=== PATIENT | male | born 1935 | race Caucasian/White ===

== ENCOUNTER 2021-06-01 08:34 | Outpatient (REF) | payer MEDICARE, SELFPAY ==
--- NOTE | ~2021-06-01 | XR_ITS ---
EXAMINATION: XR KNEE STANDING, BILATERAL XR KNEE, LEFT CLINICAL INFORMATION: Left knee pain. COMPARISON: None TECHNIQUE: AP bilateral knees standing. Left knee 2 views. FINDINGS: AP BILATERAL KNEE: There is mild reduction in medial and lateral compartment joint spaces of both knees. No bony erosive changes. No fracture or dislocation. LEFT KNEE: The patellofemoral compartment joint space is reduced with mild suprapatellar joint effusion. No bony erosive changes. The soft tissues are normal. 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 No loose bodies or bony erosive changes. Mild degenerative changes medial and lateral compartment right knee.
--- NOTE | ~2021-06-01 | XR_ITS ---
EXAMINATION: XR KNEE STANDING, BILATERAL XR KNEE, LEFT CLINICAL INFORMATION: Left knee pain. COMPARISON: None TECHNIQUE: AP bilateral knees standing. Left knee 2 views. FINDINGS: AP BILATERAL KNEE: There is mild reduction in medial and lateral compartment joint spaces of both knees. No bony erosive changes. No fracture or dislocation. LEFT KNEE: The patellofemoral compartment joint space is reduced with mild suprapatellar joint effusion. No bony erosive changes. The soft tissues are normal. 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 No loose bodies or bony erosive changes. Mild degenerative changes medial and lateral compartment right knee.
== END 2021-06-01 08:35 | disposition home or self-care (01) ==
LOC: HO.HOSX 08:34
PROVIDERS: Visit Provider Orthopaedic Surgery
DX: M17.12 Unilateral primary osteoarthritis, left knee (principal); M25.561 Pain in right knee
CPT/HCPCS: 20610; 73560; 73565; 99202; J1040

== ENCOUNTER 2022-03-24 08:44 | Outpatient (REF) | payer MEDICARE, SELFPAY ==
[2022-03-24 11:26] LABS: MANUAL DIFF FLAG NO
[2022-03-24 11:36] LABS: Appearance Urine CLEAR; Color Urine YELLOW; Glucose Urine UA NEG (NEG); Leukocyte Esterase Urine NEG (NEG); Nitrite Urine NEG (NEG); PH 5.5 (5.0-8.0); Specific Gravity - Urine >= 1.030 (1.005-1.025); UACC Culture Trigger NO; Urine Blood TRACE (NEG); Urine Ketones NEG (NEG); Urine Protein NEG (NEG-TRACE)
[2022-03-24 11:40] LABS: Basophils Absolute Auto 0.1 X10*3/uL (0.0-0.2); Basophils Percent Auto 0.8 % (0-2); Eosinophils Absolute Auto 0.3 X10*3/uL (0.0-0.4); Eosinophils Percent Auto 3.8 % (0-4); Hematocrit 44.5 % (42.0-52.0); Hemoglobin 14.7 g/dl (14.0-18.0); Imm Gran Abs Auto 0.03 X10*3/uL (0.00-0.03); Imm Gran Pct Auto 0.4 % (0.0-0.4); Lymphocytes Absolute Auto 1.4 X10*3/uL (1.2-4.9); Lymphocytes Percent Auto 18.5 % (20-40); Mean Corpuscular Hemoglobin 31.1 pg (27.0-33.0); Mean Corpuscular Volume 94.3 fL (80.0-98.0); Mean Platelet Volume 11.1 fL (9.4-12.4); Monocytes Absolute Auto 0.7 X10*3/uL (0.1-1.2); Monocytes Percent Auto 9.6 % (2-11); Neutrophils Absolute Auto 5.2 x10*3/uL (2.0-8.3); Neutrophils Percent Auto 66.9 % (45-73); Platelet Count 261 X10*3/uL (160-400); Red Blood Count 4.72 X10*6/uL (4.60-5.80); Red Cell Distribution Width 13.4 % (11.0-16.0); White Blood Count 7.7 X10*3/uL (4.8-10.8)
[2022-03-24 12:02] LABS: Mucus Urine 1+ /LPF; Squamous Epithelial Cell Urine TRACE /LPF; WBC Urine 0 /HPF (0-4)
[2022-03-24 12:09] LABS: TSH reflex Free T4 3.29 uIU/mL (0.32-4.0)
[2022-03-24 12:10] LABS: Alanine Aminotransferase 39 U/L (0-40); Albumin Level 4.1 g/dL (3.5-5.0); Alkaline Phosphatase 126 U/L (39-117); Anion Gap 13 (12-20); Aspartate Amino Transferase 30 U/L (5-37); Bilirubin Total 0.9 mg/dL (0.0-1.0); Blood Urea Nitrogen 20 mg/dL (9-16); Calcium 10.1 mg/dL (8.4-10.2); Carbon Dioxide 28 mmol/L (22-29); Chloride 103 mmol/L (96-108); Cholesterol 150 mg/dL; Estimated Glomerular Filt Rate > 60; Glucose Fasting 102 mg/dL (60-99); HDL Cholesterol 53 mg/dL; LDL Cholesterol Calculated 80 mg/dl; Potassium 4.5 mmol/L (3.3-5.1); Sodium 139 mmol/L (135-145); Triglycerides 85 mg/dL
== END 2022-03-24 08:45 | disposition home or self-care (01) ==
LOC: HO.HMGCLDS 08:44
PROVIDERS: PCP Nurse Practitioner Family; Visit Provider Nurse Practitioner Family
DX: I50.9 Heart failure, unspecified (principal); I10 Essential (primary) hypertension; E78.00 Pure hypercholesterolemia, unspecified
CPT/HCPCS: 36415; 80053; 80061; 81001; 84443; 85025

== ENCOUNTER 2022-07-27 09:17 | Outpatient (REF) | payer MEDICARE, SELFPAY ==
[2022-07-27 11:10] LABS: MANUAL DIFF FLAG NO
[2022-07-27 11:15] LABS: Basophils Percent Auto 0.6 % (0-2); Eosinophils Absolute Auto 0.3 X10*3/uL (0.0-0.4); Eosinophils Percent Auto 4.3 % (0-4); Hematocrit 44.2 % (42.0-52.0); Hemoglobin 14.6 g/dl (14.0-18.0); Imm Gran Abs Auto 0.02 X10*3/uL (0.00-0.03); Imm Gran Pct Auto 0.3 % (0.0-0.4); Lymphocytes Absolute Auto 1.6 X10*3/uL (1.2-4.9); Mean Corpuscular Hemoglobin 30.5 pg (27.0-33.0); Mean Corpuscular Volume 92.3 fL (80.0-98.0); Mean Platelet Volume 10.4 fL (9.4-12.4); Monocytes Absolute Auto 0.7 X10*3/uL (0.1-1.2); Monocytes Percent Auto 9.9 % (2-11); Neutrophils Absolute Auto 4.1 x10*3/uL (2.0-8.3); Neutrophils Percent Auto 60.9 % (45-73); Platelet Count 245 X10*3/uL (160-400); Red Blood Count 4.79 X10*6/uL (4.60-5.80); Red Cell Distribution Width 13.6 % (11.0-16.0); White Blood Count 6.8 X10*3/uL (4.8-10.8)
[2022-07-27 11:24] LABS: Appearance Urine Clear; Color Urine Yellow; Glucose Urine UA Negative (Negative); Leukocyte Esterase Urine Negative (Negative); Nitrite Urine Negative (Negative); PH 5.5 (5.0-9.0); Urine Blood Negative (Negative); Urine Ketones Negative (Negative); Urine Protein Negative (Neg-Trace)
[2022-07-27 11:52] LABS: Ferritin 166 ng/mL (20-250); TSH reflex Free T4 3.43 uIU/mL (0.32-4.0)
[2022-07-27 11:55] LABS: Alanine Aminotransferase 34 U/L (0-40); Albumin Level 4.3 g/dL (3.5-5.0); Alkaline Phosphatase 103 U/L (39-117); Anion Gap 15 (12-20); Aspartate Amino Transferase 31 U/L (5-37); Bilirubin Total 0.7 mg/dL (0.0-1.0); Blood Urea Nitrogen 22 mg/dL (9-16); Calcium 9.6 mg/dL (8.4-10.2); Carbon Dioxide 28 mmol/L (22-29); Chloride 102 mmol/L (96-108); Cholesterol 158 mg/dL; Estimated Glomerular Filt Rate > 60; Glucose Fasting 90 mg/dL (60-99); HDL Cholesterol 57 mg/dL; Iron 108 mcg/dL (45-160); LDL Cholesterol Calculated 85 mg/dl; Percent Iron Saturation 35 % (15-50); Potassium 4.1 mmol/L (3.3-5.1); Sodium 141 mmol/L (135-145); Total Iron Binding Capacity 312 mcg/dL (228-428); Triglycerides 83 mg/dL; Unsaturated Iron Binding 204 ug/dL
[2022-07-27 12:20] LABS: Folate > 20.0 ng/mL (> or = 4.0); Vitamin B12 584 pg/mL (200-900)
== END 2022-07-27 09:18 | disposition home or self-care (01) ==
LOC: HO.HMGCLDS 09:17
PROVIDERS: PCP Nurse Practitioner Family; Visit Provider Nurse Practitioner Family
DX: I10 Essential (primary) hypertension (principal); R53.83 Other fatigue
CPT/HCPCS: 36415; 80053; 80061; 81003; 82607; 82728; 82746; 83540; 84443; 85025

== ENCOUNTER 2022-08-08 09:09 | Outpatient (REF) | payer MEDICARE, SELFPAY ==
--- NOTE | ~2022-08-08 | XR_ITS ---
EXAMINATION: XR CHEST CLINICAL INFORMATION: Abnormal weight loss. COMPARISON: None TECHNIQUE: 2 views of the chest were obtained. FINDINGS: A paucity of lung markings is seen in the upper lobes. Mild coarsened interstitial markings are seen inferiorly with linear markings in the right middle lobe and lingula. There are no pleural effusions. The heart and mediastinal structures are unremarkable. XR/XR chest 2V IMPRESSION: Chronic pulmonary changes suggesting COPD. No acute cardiopulmonary process.
[2022-08-08 11:16] LABS: MANUAL DIFF FLAG NO
[2022-08-08 11:40] LABS: Basophils Absolute Auto 0.1 X10*3/uL (0.0-0.2); Basophils Percent Auto 0.9 % (0-2); Eosinophils Absolute Auto 0.2 X10*3/uL (0.0-0.4); Hematocrit 42.8 % (42.0-52.0); Hemoglobin 14.1 g/dl (14.0-18.0); Imm Gran Abs Auto 0.02 X10*3/uL (0.00-0.03); Imm Gran Pct Auto 0.3 % (0.0-0.4); Lymphocytes Absolute Auto 1.2 X10*3/uL (1.2-4.9); Lymphocytes Percent Auto 16.6 % (20-40); Mean Corpuscular HGB Conc 32.9 g/dl (31.0-36.0); Mean Corpuscular Hemoglobin 30.6 pg (27.0-33.0); Mean Corpuscular Volume 92.8 fL (80.0-98.0); Mean Platelet Volume 10.5 fL (9.4-12.4); Monocytes Absolute Auto 0.7 X10*3/uL (0.1-1.2); Monocytes Percent Auto 10.6 % (2-11); Neutrophils Absolute Auto 4.8 x10*3/uL (2.0-8.3); Neutrophils Percent Auto 68.6 % (45-73); Platelet Count 261 X10*3/uL (160-400); Red Blood Count 4.61 X10*6/uL (4.60-5.80); Red Cell Distribution Width 13.4 % (11.0-16.0)
[2022-08-08 12:03] LABS: Estimated Average Glucose 123 mg/dL; Hemoglobin A1C 149.6778 umol/L; Hemoglobin A1c % 5.9 %
[2022-08-08 12:04] LABS: Alanine Aminotransferase 26 U/L (0-40); Albumin Level 4.1 g/dL (3.5-5.0); Alkaline Phosphatase 107 U/L (39-117); Anion Gap 16 (12-20); Aspartate Amino Transferase 24 U/L (5-37); Blood Urea Nitrogen 20 mg/dL (9-16); C Reactive Protein 0.03 mg/dL (< or = 0.50); Calcium 9.4 mg/dL (8.4-10.2); Carbon Dioxide 26 mmol/L (22-29); Chloride 103 mmol/L (96-108); Estimated Glomerular Filt Rate > 60; Glucose Random 75 mg/dL (60-115); Potassium 4.4 mmol/L (3.3-5.1); Sodium 141 mmol/L (135-145); Total Protein 6.6 g/dL (6.5-8.0)
[2022-08-08 12:18] LABS: HBS Num1 0.96 mIU/mL (0-7.99); HBc Num1 0.08 S/CO (0.00-0.79); HIV AB/AG Nonreactive (Nonreactive); HIV Num 1 0.07 S/CO (0.00-0.99); Hepatitis B Core Antibody Nonreactive (Nonreactive); Hepatitis B Surface Antigen Negative (Negative); ~HepC Num1 0.15 S/CO (0.00-0.79); ~Hepatitis B Surface Antibody NONREACTIVE (Nonreactive); ~Hepatitis C Antibody Nonreactive (Nonreactive)
[2022-08-08 12:20] LABS: Prostate Specific Antigen Scr < 0.05 ng/mL (<0.05-4.0); TSH reflex Free T4 3.64 uIU/mL (0.32-4.0)
[2022-08-08 12:21] LABS: Erythrocyte Sedimentation Rate 2 MM/HR (0-15)
[2022-08-08 12:27] LABS: Appearance Urine Clear; Color Urine Dark Yellow; Glucose Urine UA Negative (Negative); Leukocyte Esterase Urine Negative (Negative); Nitrite Urine Negative (Negative); Specific Gravity - Urine 1.025 (1.005-1.025); Urine Blood Negative (Negative); Urine Ketones Negative (Negative); Urine Protein Negative (Neg-Trace)
[2022-08-09 04:34] LABS: Hepatitis A Antibody IgM 0.15 Index (0-0.79); ~Hepatitis A Antibody IgM Nonreactive (Nonreactive)
== END 2022-08-08 09:10 | disposition home or self-care (01) ==
LOC: HO.HMGCX 09:09
PROVIDERS: PCP Nurse Practitioner Family; Visit Provider Nurse Practitioner Family
DX: Z12.5 Encounter for screening for malignant neoplasm of prostate (principal); Z11.4 Encounter for screening for human immunodeficiency virus [HIV]; R63.4 Abnormal weight loss
CPT/HCPCS: 36415; 71046; 80053; 81003; 83036; 84153; 84443; 85025; 85652; 86140; 86704; 86706; 86709; 86803; 87340; 87389

== ENCOUNTER 2022-08-13 | Outpatient (REF) | payer MEDICARE, SELFPAY ==
[2022-08-14 14:33] LABS: FIT Int Ctl YES; FIT1 NEGATIVE (NEGATIVE); FIT2 NEGATIVE (NEGATIVE)
== END 2022-08-13 00:01 | disposition home or self-care (01) ==
LOC: HO.LNP
PROVIDERS: Visit Provider Nurse Practitioner Family
DX: R63.4 Abnormal weight loss (principal)
CPT/HCPCS: 82274

== ENCOUNTER 2022-08-14 10:46 | Outpatient (REF) | payer MEDICARE, SELFPAY | END 2022-08-14 10:47 | disposition home or self-care (01) | LOC: HO.HMGCLDS 10:46 | PROVIDERS: PCP Nurse Practitioner Family; Visit Provider Nurse Practitioner Family | DX: Z13.89 Encounter for screening for other disorder (principal) ==

== ENCOUNTER → 2023-03-13 10:00 | Outpatient (BNVA) | payer MEDICARE, SELFPAY | PROVIDERS: PCP Internal Medicine; Visit Provider Nurse Practitioner Family | DX: R32 Unspecified urinary incontinence (principal); R39.15 Urgency of urination; R35.0 Frequency of micturition; R15.9 Full incontinence of feces; R31.29 Other microscopic hematuria; Z85.46 Personal history of malignant neoplasm of prostate; Z79.82 Long term (current) use of aspirin; Z79.899 Other long term (current) drug therapy | CPT/HCPCS: 99202 ==

== ENCOUNTER 2023-03-16 13:58 | Outpatient (REF) | payer MEDICARE, SELFPAY ==
--- NOTE | ~2023-03-16 | US_ITS ---
EXAMINATION: US RETROPERITONEAL COMPLETE (RENAL) CLINICAL INFORMATION: Unspecified urinary incontinence. COMPARISON: None available. TECHNIQUE: Real-time imaging of the kidneys and bladder. FINDINGS: RIGHT KIDNEY: 10.5 x 4.5 x 5.5 cm (SAG x AP x TRV). The kidney is normal in size, contour, and echogenicity. Renal cortical thickness is normal. No calculi or focal parenchymal lesions. No hydronephrosis. LEFT KIDNEY: 11.1 x 3.9 x 4.9 cm (SAG x AP x TRV). The kidney is normal in size, contour, and echogenicity. Renal cortical thickness is normal. No calculi or focal parenchymal lesions. No hydronephrosis. BLADDER: Well distended and normal. Bilateral ureteral jets are demonstrated. Prevoid bladder volume is 150 mL. Postvoid bladder volume is 27 mL. ADDITIONAL FINDINGS: The prostate volume measures 11.8 cm. The prostate is suboptimally visualized. US/US retroperitoneal comp IMPRESSION: Normal renal ultrasound.
== END 2023-03-16 13:59 | disposition home or self-care (01) ==
LOC: HO.HMGCX 13:58
PROVIDERS: PCP Ophthalmology; Visit Provider Nurse Practitioner Family
DX: R15.9 Full incontinence of feces (principal); R32 Unspecified urinary incontinence; R35.0 Frequency of micturition; R39.15 Urgency of urination
CPT/HCPCS: 76770

== ENCOUNTER → 2023-03-29 14:12 | Outpatient (BNVA) | payer MEDICARE, SELFPAY | PROVIDERS: PCP Ophthalmology; Visit Provider Nurse Practitioner Family | DX: R35.0 Frequency of micturition (principal); R39.15 Urgency of urination; R32 Unspecified urinary incontinence | CPT/HCPCS: Q3014 ==

== ENCOUNTER 2023-05-01 13:11 | Outpatient (AMB) | payer MEDICARE, SELFPAY ==
--- NOTE | 2023-05-01 13:14 | A.OFFVIS_ITS ---
Intake Intake Visit Reasons: 6w/US/cysto Intake Note: Patient is present for Cystoscopy Urology Med: Tamsulosin Antibiotic Allergy: None Blood Thinner: Aspirin Allergies No Known Allergies Allergy (Verified 05/01/23 13:17) HPI HPI Comments History of Present Illness Details Tisha is a very pleasant male. He is a patient of Dr. Bedoya. He is seen for the following urologic conditions - prostate cancer - urinary urgency with poor emptying Imaging with small bladder volume and residual Discussed impacted potential damage from radiation May trial combination therapy with Myrbetriq for bladder control and bethanechol to improve emptying Prostate cancer - initial management brachytherapy - 2006 PSA stable 08/12 <0.05 Lower urinary tract symptoms Urinary urgency, frequency with episodes of on sensed incontinence and weakness of stream Associated rectal incontinence Appeared to have a code at time of brachytherapy placement Prior trial InterStim with minimal benefit PFSH Medical History CHF (congestive heart failure) High cholesterol HTN (hypertension) Left bundle branch block (LBBB) 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 Surgical History H/O heart artery stent Social History Housing: House Alcohol intake: never Patient Tobacco Use Status: Never used Tobacco e-Cigarette/Vaping Use: Never Used Second Hand Smoke Exposure: No Current occupational status: retired Cognitive needs: No Hearing needs: Yes Vision needs: Yes Review of Systems Const Denies chills and Denies fever(s) Card Reports no additional complaints and Denies syncope Resp Denies cough GI Denies abdominal pain and Denies heartburn Reports as per HPI and Denies change in libido Neuro Denies syncope Psych Denies change in libido Endo Denies change in libido Physical Exam Const General: cooperative, healthy appearing, comfortable and no acute distress Orientation/consciousness: patient oriented x3 HEENT Face and sinus: Yes normal facial exam Mouth: moist mucous membranes Neck Neck: Yes normal visual inspection, Yes full ROM and Yes trachea midline Chest Chest palpation & inspection: normal inspection of the chest Resp Effort & Inspection: normal respiratory effort, able to speak in complete sentences and no respiratory distress GI Inspection: Yes normal to inspection Back/Spine/Pelvis Cervical Spine: normal cervical lordosis Thoracic/Lumbar Spine: thoracic and lumbar spine normal to inspection Skin General skin exam: no rashes or lesions noted Neuro General: patient oriented x3, gait normal, tone normal and moves all extremities Extrem General: Yes normal to inspection and Yes capillary refill normal Assessment & Plan Assessment & Plan (1) Urinary frequency: Code(s): R35.0 - Frequency of micturition (2) Urinary urgency: Code(s): R39.15 - Urgency of urination (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 No major barriers to patient understanding were identified. An opportunity to ask questions regarding the treatment plan was provided. All questions were answered. The patient expressed understanding and agreement with the above treatment plan. The patient is aware they should contact our office by phone for worsening of their current condition or the appearance of new urologic symptoms. Compliance is encouraged with any medications and followup testing that is ordered. It is a privilege to participate in the urologic care of your patient. If you have any questions or concerns regarding treatment for the above conditions, or other urologic issues, please do not hesitate to contact me. The office telephone contact is [phone]. This note is constructed using voice recognition software. While every effort has been made to ensure accuracy wire frame lamp shade maker errors may have been included. Yours sincerely, Dr Stephen French MD, [facility] - Urology Providers of Expert, Compassionate Care for the Genitourinary System Coding Level of Care Code Est Pt Level 3 (60976) Diagnoses Urinary frequency R35.0 Urinary urgency R39.15 Radiation cystitis N30.40
== END 2023-05-01 13:21 | disposition home or self-care (01) ==
PROVIDERS: Visit Provider Urology
DX: R35.0 Frequency of micturition (principal); R39.15 Urgency of urination; N30.40 Irradiation cystitis without hematuria
CPT/HCPCS: 99213

== ENCOUNTER → 2023-05-01 13:11 | Outpatient (BNVA) | payer MEDICARE, SELFPAY | PROVIDERS: Visit Provider Urology | DX: N30.40 Irradiation cystitis without hematuria (principal); R35.0 Frequency of micturition; R39.15 Urgency of urination | CPT/HCPCS: 99212 ==

== ENCOUNTER 2023-05-25 11:20 | Outpatient (AMB) | payer MEDICARE, SELFPAY ==
--- NOTE | 2023-05-25 11:22 | A.OFFVIS_ITS ---
Intake Vital Signs 05/25/23 11:24 Height 5 ft 6 in Weight 141 lb 15.643 oz BMI 22.9 BP 145/68 H Blood Pressure Location Lt brachial Position Sitting Pulse 73 Intake Visit Reasons: Full incontinence of feces Intake Note: Patient presents to in office visit today as a new patient for incontinence of feces. CC: Patient reports he has lost 16 pounds in 2 months. Pt c/o fecal incontinence and frequency, having trouble passing stools, stools are soft. Patient states he was scheduled to start physical therapy on 06/05/23. He also reports a lot of gas in the morning. Denies other GI symptoms today. Agile Scrum Master Required: No Accompanied by: Self / Same As Patient Allergies No Known Allergies Allergy (Verified 05/25/23 11:29) HPI Full incontinence of feces HPI Details 88-year-old male here for initial evaluation of fecal incontinence. He is referred by Brenton Weber of [facility] primary care. PMX CHF/left bundle branch block Hypertension High cholesterol History of radiation cystitis Prostate cancer radiation seeds Urinary incontinence Weight loss Fatigue * SURGICAL HISTORY Coronary artery stent x 2 C spine surgery with hardware LE neuropathy [place] bilateral BRAN's * ALLERGIES: Rifamptin - flu like sx * [employer] LABS: none since 07/[address] MALDONADO UROLOGY 03/13/2023 He discusses his longstanding history of prostate cancer and having radioactive seeds placed approximately 16 years ago.? He also discusses having a longstanding history of urinary and fecal incontinence since these radioactive seeds were placed.? He reports following up with a provider in [place] for InterStim years ago for urinary and fecal incontinence however found this to make his symptoms worse at which time InterStim was removed and patient reports symptoms continue to worsen.? TODAY'S VISIT HE was sent to see Dr. Patel in [place], and he saw an WINDOWS LAPTOP TECHNICIAN, and he was sent for PT for his rectal muscle. It appears that he was referred to us through his urologist Dr. Hernandez. NOTE FROM DR. MALDONADO UROLOGY 03/13/2023 He discusses his longstanding history of prostate cancer and having radioactive seeds placed approximately 16 years ago.? He also discusses having a longstanding history of urinary and fecal incontinence since these radioactive seeds were placed.? He reports following up with a provider in [place] for InterStim years ago for urinary and fecal incontinence however found this to make his symptoms worse at which time InterStim was removed and patient reports symptoms continue to worsen.? He moves his bowels several times a day, and he has a great deal of trouble controlling it. He has incomplete evacuation with soft stool. His stooling has gradually changed over the past few months, he has also lost 16 lbs. His appetite he says has been good, and this been no change in his level of exercise. He is at a loss to explain the weight loss any says he has had quite a lot of blood work through his primary care both here and in [place] with no significant findings. His last colonoscopy was in [place] but he has had some at [facility] in the past. He says his last was horrible r/t the prep and liquid stools. His stool color change from light brown to black - but sometimes he will take pepto bismol. He has a lot of gas in the am, but not so much through the rest of day. He just had bloodwork with Dr. Bedoya. Had CT 03/26 at [facility] abd and pelvis, we will try to get this to see if there are any findings to help with his diagnosis and treatment. HE has not done stool samples except FIT testing here. He has daily fatigue and weakness - will be seeing cardiology for a repeat echo; apparently his CHF was only recently diagnosed. HE will be having PT 06/05 for ? rectal muscle dysfunction The overall differential diagnosis is wide and could include rectal sphincter dysfunction however his bowels are quite hyperactive on examination and it may be that if we slow down the stooling and make it more formed that he will have better control. I do not want to start any new medications or interventions until I gathered all of the evidence. The patient is getting somewhat fatigued does testing and blood work without answers but he is agreeable to doing stool studies today. With this in mind will get a fecal calprotectin, a pancreatic a last taste and do some basic allergy testing via a RAST and a celiac panel. ROV 2 weeks. 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 Prostate cancer Surgical History H/O cervical spine surgery H/O colonoscopy H/O heart artery stent Social History Housing: House Alcohol intake: never Patient Tobacco Use Status: Never used Tobacco e-Cigarette/Vaping Use: Never Used Second Hand Smoke Exposure: No Current occupational status: retired Cognitive needs: No Hearing needs: Yes Vision needs: Yes Review of Systems Const Reports fatigue, Denies fever(s), Denies night sweats, Denies poor appetite, Reports weakness and Reports weight loss Eyes Details: glasses/bilateral hearing aids Reports requires corrective lenses ENT Denies Normal hearing present, Denies dental pain, Denies dysphagia, Reports hearing loss, Denies mouth pain, Denies odynophagia, Denies throat swelling, Denies tongue swelling and Reports other (Dentition adequate) Card Reports no additional complaints Resp Reports no additional complaints GI Denies abdominal pain, Denies melena, Denies bloating, Denies hematochezia, Denies constipation, Denies GI cramping, Denies dysphagia, Denies excessive flatus, Denies early satiety, Denies heartburn, Reports fecal incontinence, Denies diarrhea, Denies nausea, Denies odynophagia, Denies vomiting and Denies hematemesis Reports urinary incontinence Skin/Breast Denies pruritus, Denies lesions, Denies rash and Denies jaundice Neuro Denies Normal hearing present, Denies Abnormal speech present and Reports weakness Endo Reports fatigue Aller/Immun Denies throat swelling and Denies tongue swelling Physical Exam Vital Signs: Last Vital Signs Pulse 73 05/25/23 11:24 BP 145/68 H 05/25/23 11:24 BMI result Body Mass Index 22.9 Const General: cooperative, no acute distress, well developed and well groomed Nutritional Appearance: average body habitus and well nourished Orientation/consciousness: oriented to person, oriented to place and oriented to time Limitations: No language barrier HEENT Head: Yes normocephalic and Yes atraumatic Ears: hearing grossly impaired (but well corrected with bilateral BRAN's) Eyes General: appearance normal, both eyes and all related structures Pupils: Equal, round and reactive pupils present Neck Neck: Yes normal visual inspection and Yes no lymphadenopathy Thyroid: Thyroid normal Resp Effort & Inspection: normal respiratory effort and able to speak in complete sentences Auscultation: clear to auscultation bilaterally Cardio Rate: regular rate Rhythm: regular rhythm Heart sounds: Normal, physiologic split S2 sound present Peripheral pulses: radial pulses present and posterior tibial pulses present GI Inspection: No distended and No Abdominal panniculus present Palpation (GI): Soft to palpation, nontender, no guarding, not rigid and No hepatosplenomegaly present Percussion: Yes normal to percussion Auscultation: Hyperactive bowel sounds present Rectal Exam - Male: Yes deferred Skin General skin exam: no rashes or lesions noted, turgor normal, skin not dry, no jaundice, No spider nevi and no striae Rashes: no rashes Nails: normal Neuro General: oriented to person, oriented to place and oriented to time Cranial nerves: Yes Equal, round and reactive pupils present and No Normal hearing present Speech: No Abnormal speech present Extrem General: Yes normal to inspection, No clubbing, No cyanosis and No edema Psych Appearance: grossly normal and well kempt Mental Status: mental status grossly normal Speech and movement: Normal speech and movement present Affect: normal affect Attitude: cooperative Thought process: Normal thought process present and not confabulating Thought content: Normal thought content present Insight: Limited insight present (Psych) Judgement: Limited judgement present (Psych) Assessment & Plan Assessment & Plan (1) Fecal incontinence: Code(s): R15.9 - Full incontinence of feces Plan: HE was sent to see Dr. Patel in [place], and he saw an WINDOWS LAPTOP TECHNICIAN, and he was sent for PT for his rectal muscle. It appears that he was referred to us through his urologist Dr. Hernandez. NOTE FROM DR. MALDONADO UROLOGY 03/13/2023 He discusses his longstanding history of prostate cancer and having radioactive seeds placed approximately 16 years ago.? He also discusses having a longstanding history of urinary and fecal incontinence since these radioactive seeds were placed.? He reports following up with a provider in [place] for InterStim years ago for urinary and fecal incontinence however found this to make his symptoms worse at which time InterStim was removed and patient reports symptoms continue to worsen.? He moves his bowels several times a day, and he has a great deal of trouble controlling it. He has incomplete evacuation with soft stool. His stooling has gradually changed over the past few months, he has also lost 16 lbs. His appetite he says has been good, and this been no change in his level of exercise. He is at a loss to explain the weight loss any says he has had quite a lot of blood work through his primary care both here and in [place] with no significant findings. His last colonoscopy was in [place] but he has had some at [facility] in the past. He says his last was horrible r/t the prep and liquid stools. His stool color change from light brown to black - but sometimes he will take pepto bismol. He has a lot of gas in the am, but not so much through the rest of day. He just had bloodwork with Dr. Bedoya. Had CT 03/26 at [facility] abd and pelvis, we will try to get this to see if there are any findings to help with his diagnosis and treatment. HE has not done stool samples except FIT testing here. He has daily fatigue and weakness - will be seeing cardiology for a repeat echo; apparently his CHF was only recently diagnosed. HE will be having PT 06/05 for ? rectal muscle dysfunction The overall differential diagnosis is wide and could include rectal sphincter dysfunction however his bowels are quite hyperactive on examination and it may be that if we slow down the stooling and make it more formed that he will have better control. I do not want to start any new medications or interventions until I gathered all of the evidence. The patient is getting somewhat fatigued does testing and blood work without answers but he is agreeable to doing stool studies today. With this in mind will get a fecal calprotectin, a pancreatic a last taste and do some basic allergy testing via a RAST and a celiac panel. ROV 2 weeks. (2) Diarrhea: Code(s): R19.7 - Diarrhea, unspecified Orders: Orders Calprotectin, Fecal Today R15.9 - Full incontinence of feces, R19.7 - Diarrhea, unspecified Pancreatic Elastase-1 Today R15.9 - Full incontinence of feces, R19.7 - Diarrhea, unspecified Rast Allergen Today R15.9 - Full incontinence of feces, R19.7 - Diarrhea, unspecified Transglutaminase IgA Today R15.9 - Full incontinence of feces, R19.7 - Diarrhea, unspecified Transglutaminase Ab IgG Today R15.9 - Full incontinence of feces, R19.7 - Diarrhea, unspecified Coding Level of Care Code New Pt Level 3 (56250) Diagnoses Fecal incontinence R15.9 Diarrhea R19.7
[2023-05-25 11:24] VITALS: BP 145/68; PULSE 73; BMI 22.9
== END 2023-05-25 12:15 | disposition home or self-care (01) ==
PROVIDERS: PCP Internal Medicine; Visit Provider Nurse Practitioner
DX: R15.9 Full incontinence of feces (principal); R19.7 Diarrhea, unspecified
CPT/HCPCS: 99203; 99213

== ENCOUNTER → 2023-05-25 11:20 | Outpatient (BNVA) | payer MEDICARE, SELFPAY | PROVIDERS: PCP Internal Medicine; Visit Provider Nurse Practitioner | DX: R15.9 Full incontinence of feces (principal); R19.7 Diarrhea, unspecified | CPT/HCPCS: 99202 ==

== ENCOUNTER 2023-06-19 15:00 | Outpatient (RCR) | payer MEDICARE, SELFPAY | END 2023-07-13 08:40 | disposition home or self-care (01) | LOC: HO.PT 15:00 | PROVIDERS: PCP Internal Medicine; Visit Provider Physician Assistant | DX: R15.0 Incomplete defecation (principal) | CPT/HCPCS: 97112; 97140; 97161 ==

== ENCOUNTER 2025-06-29 12:05 | Outpatient (AMB) | payer MEDICARE, SELFPAY ==
--- OUTSIDE RECORDS SUMMARY | 2024-09-26 09:00 | XMS_ITS ---
Author Organization [facility] christine Address [address] [place] [address] Care Team Providers Care Typewriter Mechanic Name Role Phone MD JESSEE BARRIOS Primary Care Provider [phone] JESSEE BARRIOS Unavailable Unavailable REASON FOR VISIT ERROR Encounters Encounter Location Date Provider Diagnosis [facility] [address] [place] [address] 09/26/2024 JESSEE BARRIOS Plan Of Treatment No Information Progress Notes * MISBAHGELA QuezadaGISSELLE ADOB:1935 (89 yo M)Acc No.[id number]:09/26/2024 Patient: ANUJ ALVARADO Provider: Mario Jordan :1935 A ge:89 Y S ex:Male Date:09/26/2024 Address:[address] [place], [place] [id number] Subjective: * Chief Complaints: * 1 . ERROR. * Medical History: Objective: * Vitals: Assessment: Plan: * Treatment: * Images: * Electronic signature of MD Mario BARRIOS on 06/29/2025 at 02:32 PM EDT Sign off status: Pending * Provider: Mario Jordan Date: 11/27/2023 Generated for Zev cifuentes/Eduardo/eTransmitting on: 0 06/29/2025 02:32 PM EDT
--- OUTSIDE RECORDS SUMMARY | 2024-11-05 09:45 | XMS_ITS ---
Author Organization [facility] Address [address] [place] [id number] Care Team Providers Care Karate Instructor Name Role Phone Lopez Morales Primary Care Provider Mitul PHOENIX, Jono Unavailable Encounters Encounter Location Date Provider Diagnosis [facility] [address] [place], [place] [id number] 11/05/2024 Jono Bauman Plan Of Treatment No Information Progress Notes * Wood CRAWLEYOlimpiaOB:1935 ( 89 yo M)Acc No.[id number]:11/05/2024 Progress Notes Patient: Tisha ALVARADO Provider: Shon Bauman MD :1935 A ge:89 Y S ex:Male Date:11/05/2024 Address:[address] [place], [place] [id number] Pcp:Lopez Jordan Subjective: * Chief Complaints: * * Medical History: Objective: * Vitals: Assessment: Plan: * Treatment: * * Electronic signature of Jono Bauman MD, MD on 06/29/2025 at 02:33 PM EDT Sign off status: Pending * Provider: Shon Bauman MD Date: 0 11/05/2024 Generated for Zev cifuentes/Eduardo/Aislinnitting on: 0 06/29/2025 02:33 PM EDT
--- OUTSIDE RECORDS SUMMARY | 2024-12-03 11:00 | XMS_ITS ---
Author Organization [facility] christine Address [address] [place] [id number] Care Team Providers Care Sales Associate Cashier Name Role Phone MD JESSEE BARRIOS Primary Care Provider [phone] JESSEE BARRIOS Unavailable Unavailable REASON FOR VISIT COVID & FLU TEST Encounters Encounter Location Date Provider Diagnosis [facility] [address] [place] [address] 12/03/2024 JESSEE BARRIOS Plan Of Treatment No Information Progress Notes * MISBAHJEAN-PIERRE QuezadaAlice ADOB:1935 (89 yo M)Acc No.[id number]:12/03/2024 Patient: ANUJ ALVARADO Provider: Mario Jordan :1935 A ge:89 Y S ex:Male Date:12/03/2024 Address:[address] [place], [place] [id number] Subjective: * Chief Complaints: * 1 . COVID & FLU TEST. * Medical History: Objective: * Vitals: Assessment: Plan: * Treatment: * Images: * Electronic signature of MD Mario BARRIOS on 06/29/2025 at 02:31 PM EDT Sign off status: Pending * Provider: Mario Jordan Date: 12/03/2024 Generated for Zev ng/Eduardo/eTransmitting on: 0 06/29/2025 02:31 PM EDT
--- NOTE | 2025-06-29 12:21 | MHC.OFFWIV ---
Intake Vital Signs 06/29/25 12:22 Height 5 ft 6 in Weight 132 lb BMI 21.3 BP 118/70 Blood Pressure Location Lt brachial Position Sitting Pulse 70 Pulse Source Pulse Oximeter Temp 97.8 F Temp Source Oral Pulse Oximetry (%) 97 Oxygen Delivery Method Room Air Intake Visit Reasons: EP-constipation Intake Note: patient is here for constipation, 4 hours. patient is requesting an enema, he states he feels impacted and its causing him pain. he states its hard for him to walk or sit. Patient Tobacco Use Status: Never used Tobacco Allergies No Known Allergies Allergy (Verified 05/25/23 11:29) Do you need a note to return to daycare/school/sports/work: No HPI HPI Comments History of Present Illness Details 89 y/o Male patient who presents to the walk in clinic with c/o Constipation with abdominal cramping. He has not moved his Bowels for 2 days now. Denies nausea or vomiting. 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 Surgical History H/O cervical spine surgery H/O colonoscopy H/O heart artery stent Social History Housing: House Alcohol intake: never Patient Tobacco Use Status: Never used Tobacco e-Cigarette/Vaping Use: Never Used Second Hand Smoke Exposure: No Current occupational status: retired Cognitive needs: No Hearing needs: Yes Vision needs: Yes Review of Systems Const All systems reviewed & are unremarkable except as noted in HPI and below Physical Exam Vital Signs: Last Vital Signs Temp 97.8 F 06/29/25 12:22 Pulse 70 06/29/25 12:22 BP 118/70 06/29/25 12:22 Pulse Ox 97 06/29/25 12:22 Oxygen Delivery Method Room Air 06/29/25 12:22 BMI result Body Mass Index 21.3 Const General: no acute distress; No comfortable Nutritional Appearance: well nourished Orientation/consciousness: patient oriented x3 GI Inspection: Yes normal to inspection and No distended Palpation (GI): Soft to palpation, not firm, Tenderness to palpation present (GI) in the epigastrum, no guarding, not rigid and No hepatosplenomegaly present Auscultation: normal bowel sounds Rectal Exam - Male: Yes deferred Neuro General: patient oriented x3, gait normal and moves all extremities Psych Speech and movement: Normal speech and movement present Assessment & Plan Assessment & Plan (1) Constipation: Code(s): K59.00 - Constipation, unspecified Plan: Ordered SenoKot Advised to increase Fiber in his Diet Advised to hydrate with plenty fluids. Medications: New sennosides (Senokot Extra Strength) 17.2 mg PO DAILY 30 tabs 0RF K59.00 - Constipation, unspecified Coding Level of Care Code Est Pt Level 4 (58119) Diagnoses Constipation K59.00 Time Spent (min) 20
[2025-06-29 12:22] VITALS: BP 118/70; PULSE 70; TEMP 36.6; O2SAT 97; BMI 21.3
--- OUTSIDE RECORDS SUMMARY | 2025-06-29 14:32 | XMS_ITS | Patient Health Record ---
Author Organization [facility] Address [address] [address] Support Name Relationship Address Phone AlessiaWoodsanchez Guarantor Unknown [phone] Reason For Referral No Information Plan Of Treatment No Information Insurance Providers Payer Name Payer Address Payer Phone Subscriber Number Group Number Insured Name Patient Relationship to Insured Coverage Start Date Coverage End Date A[employer] (Supplemen anthony to Medicare) [address] [place] [phone] [id number] AlessiaWood calderonsanchez Self - patient is the insured 1 MEDICARE [address] [place] [phone] [id number] AlessiaWood calderonsanchez Self - patient is the insured 1
--- OUTSIDE RECORDS SUMMARY | 2025-06-29 14:32 | XMS_ITS | Patient Health Record ---
Author Organization [facility] Address [address], [place] [address] Care Team Providers Care Um Specialist Name Role Phone TAMMYGauravHOMEROON Primary Care Provider Allergies Allergen (clinical drug ingredient) Drug/Non Drug Allergy documented on EMR Reaction Allergy Type Onset Date Status Levaquin Erythema multiforme Drug Allergy Active rifampin rifampin Unknown Drug Allergy Active Reason For Referral No Information Medications Medication SIG (Take, Route, Frequency, Duration) Notes Start Date End Date Status Atorvastatin Calcium 80 MG 1 tablet Oral ly Once a day Active Carvedilol 12.5 MG 1 tablet with food O rally Twice a day Active amLODIPine Besylate 5 MG 1 po qd Oral; D uration: 30 09/27/2013 Active Losartan Potassium 25 MG 1 tablet Orally Once a day Active Omeprazole 40 MG TAKE 1 CAPSULE BY [facility] EVERY DAY 30 MINUTES BEFORE MORNING MEAL FOR 30 DAYS; Duration: 90 Active Aspirin Adult Low Strength 81 MG 1 po qd Oral; Duration: 30 09/27/2013 Active Problems Problem Type SNOMED Code ICD Code Onset Dates Problem Status W/U Status Risk Notes Problem Gastroesophageal reflux disease with esophagitis (disorder) (085814947) Gastroesophageal reflux disease with esophagitis without hemorrhage (K21.00) Active confirmed Problem Coronary artery disease (21565928) CAD (414.01) Active confirmed [id number]- Problem Hypertension (31639232) HTN (401.1) Active confirmed Juan [id number] 505- Problem Left bundle branch block (72784275) LBBB (426.3) Active confirmed Juan [id number] 505- Problem Hyperlipidemia (87501897) Hyperlipidemia (272.4) Active confirmed Juan [id number] 505- Problem Erythema multiforme (77572815) Other erythema multiforme (L51.8) 017 Problem resolved confirmed [id number] 505- Problem Eruption of skin (322235794) Rash and other nonspecific skin eruption (R21) 017 Problem resolved confirmed [id number] 505- Problem Acute bronchitis (67164998) Bronchitis, acute (466.0) 014 Problem resolved confirmed Juan [id number] 505- Problem URI (5544024222) URI (465.8) 015 Problem resolved confirmed Juan [id number] 505- Problem Pre-surgery evaluation (326601703) Preop history and physical (V72.83) Problem resolved confirmed Juan [id number] 505- Problem General examination of patient (272739633) Health checkup (V70.0) Problem resolved confirmed Juan [id number] 505- Problem Neck pain (32664753) Neck pain (723.1) Problem resolved confirmed Juan [id number] 505- Problem Vaccine refused by patient (255549217836) Vaccination not carried out because of patient refusal (V64.06) 015 Problem resolved confirmed Juan [id number] 505- Problem Benign prostatic hypertrophy (527435929) BPH (600.00) Active confirmed Juan [id number] 505- Problem Body mass index 20-24 - normal (457588267) Body Mass Index less than 19-24, adult (V85.1) Active confirmed Juan [id number] 505- Problem Acute upper respiratory infection (32445461) Acute upper respiratory infection, unspecified (J06.9) Active confirmed Juan [id number] 505- Problem Atherosclerotic heart disease of [place] coronary artery without angina pectoris (340990840218710) Atherosclerotic heart disease of [place] coronary artery without angina pectoris (I25.10) Active confirmed Juan [id number] 505- Problem 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
--- OUTSIDE RECORDS SUMMARY | 2025-06-29 14:32 | XMS_ITS | Patient Health Record ---
Author Organization [facility] Address [address] [place] [address] Care Team Providers Care Project Manager Entertainment And Media Name Role Phone PRISCILLA SANTAMARIA Primary Care Provider Allergies Allergen (clinical drug ingredient) Drug/Non Drug Allergy documented on EMR Reaction Allergy Type Onset Date Status No Known Drug Allergy Unknown Drug Allergy Active No Known Food Allergy Unknown Drug Allergy Active Pollen Pollen hives Allergy Active Reason For Referral No Information Medications Medication SIG (Take, Route, Frequency, Duration) Notes Start Date End Date Status Flonase Allergy Relief 50 MCG/ACT Suspension 2 sprays each nostril for one week then decrease to once daily Nasally Once a day; Duration: 30 days 01/16/2023 Active Atorvastatin Calcium 80 MG Tablet 1 tablet Orally Once a day Active Aspir-Low 81 MG Tablet Delayed Release 1 tablet Orally Once a day; Duration: 30 day(s) Active Zinc 50 MG Tablet 1 tablet Orally Once a day Active Vitamin C 500 MG Tablet 1 tablet Orally Once a day Active Vitamin D3 125 MCG (5000 UT) Tablet as directed Orally Active Losartan Potassium 25 MG Tablet 1 tablet Orally Once a day Active Carvedilol 6.25 MG Tablet 1 tablet with food Orally Twice a day Active amLODIPine Besylate 5 MG Tablet 1 tablet Orally Once a day; Duration: 30 day(s) Active Omeprazole 20 MG Tablet Delayed Release 1 tablet 30 minutes before morning meal Orally Once a day Active Immunizations Vaccine Route Administration Date Status Comme nts ZZCOVID-19 1st Dose Moderna IM Intramuscular 11/02/2020 Administered ZZCOVID-19 2nd Dose Moderna IM Intramuscular 11/30/2020 Administered Social History Tobacco Use: Social History Observation Description Date Details (start date - stop date) Never Smoker NA - NA Sex Assigned At : Social History Observation Description Sex Assigned At Male Social History Behavioral Health and Miscel laneous Social Info Question Answer Notes Sleep: How many hours a day? 6 Caffeine/Drugs/Alcohol/COW/B AM: Social Info Question Answer Notes Alcohol Screen (Audit-C) Did you have a drink containing alcohol in the past year? No Points 0 Interpretation Negative Drugs Have you used drugs other than those for medical reasons in the past? No SBIRT Do you sometimes drink beer, wine, or oth er alcoholic beverages? No Do you sometimes drink beer, wine, or other alco holic beverages? No Caffeine Intake: 1-2 cups per day Tobacco Use: Social Info Question Answer Notes Previous Version Tobacco Screening Are you a nonsmo ker Additional Details Category Social Info Options Details Caffeine/Drugs/Alcohol/COW/BAM: Do you smoke marijuana ? Denies Do you drink alcohol? No Problems Problem Type SNOMED Code ICD Code Onset Dates Problem Status W/U Status Risk Notes Problem Acute bronchitis (80542421) Acute bronchitis (466.0) Active confirmed ACUTE BRONCHITIS Problem Allergic rhinitis caused by pollen (38759980) Seasonal allergic rhinitis due to pollen (J30.1) Active confirmed Plan Of Treatment Pending Test Test Name Order Date X-RAY EXAM OF ABDOMEN, 2 VIEWS 9 TOBACCO USE ASSESSED 01/16/2023 TOBACCO NON-USER 01/16/2023 SYST BP < 130 MM HG 01/16/2023 DIAST BP < 80 MM HG 01/16/2023 DEPRESSION SCREEN ANNUAL 01/16/2023 FXNL STATUS ASSESSED 01/16/2023 ADVNC CARE PLAN TLK DOCD 01/16/2023 ALCOHOL/SUBS INTERV 15-30 MIN 01/16/2023 Falls Risk Assessment Documented 023 Medication List Documented in medical re cord 01/16/2023 Pain severity Quantified- No pain presen t 01/16/2023 BMI within normal parameters and no f/u plan required 01/16/2023 Screening for depression documented as n egative, so f/u is not required 01/16/2023 Medication Review 01/16/2023 Allergies Reviewed 01/16/2023 Insurance Providers Payer Name Payer Address Payer Phone Subscriber Number Group Number Insured Name Patient Relationship to Insured Coverage Start Date Coverage End Date MEDICARE A [employer] [address] [place] [phone] [id number] Tisha Aggarwal Self - patient is the insured 1 9 [facility] MEDICARE SUPPLEMENT [address] [place] [address] [id number] Tisha Aggarwal Self - patient is the insured Medical (General) History Medical History History ICD Code prostate cancer No latex allergy Surgical History Surgery Date(Month/Year) yesicarell tunnel 1998 Hospitalization History Reason Date(Month/Year) carprell tunnel 1998
--- OUTSIDE RECORDS SUMMARY | 2025-06-29 14:32 | XMS_ITS | Patient Health Record ---
Author Organization [facility] - Office Address [address] [place] [address] Care Team Providers Care Structures Engineer Name Role Phone Phil Bautista Unavailable [phone] Reason For Referral No Information Medications Medication SIG (Take, Route, Fr equency, Duration) Notes Start Date End Date Status Clopidogrel Bisulfate Active Doxycycline Active amLODIPine Besylate Active DULoxetine HCl Activ e Aspirin Active Atorvastatin Calcium Active Social History Tobacco Use: Social History Observation Description Date Details (start date - stop date) Never Smoker NA - NA Tobacco Use/Smoking Question Answer Notes Are you a nonsmoker Alcohol Screen Question Answer Notes Did you have a drink contain ing alcohol in the past year? Yes How often did you have a dri nk containing alcohol in the past year? 2 to 3 times a week (3 points) How many drinks did you have on a typical day when you were drinking in the past year? 1 or 2 drinks (0 point) Points 3 Interpretation Negative Problems Problem Type SNOMED Code ICD Code Onset Dates Problem Status W/U Status Risk Notes Problem Constipation (01184656) Constipation, unspecified (K59.00) Active confirmed Plan Of Treatment No Information Insurance Providers Payer Name Payer Address Payer Phone Subscriber Number Group Number Insured Name Patient Relationship to Insured Coverage Start Date Coverage End Date Medicare [address] [address] [place] [address] [id number] Tisha Aggarwal Self - patient is the insured [facility] Medicare Supplement [address] [place] [id number] Tisha Aggarwal Self - patient is the insured Medical (General) History Medical History History ICD Code hypertension deep vein thrombosis Arthritis heart trouble prostate cancer asthma heart attack Surgical History Surgery Date(Month/Year) carpal tunnel release cervical spine surgery
--- OUTSIDE RECORDS SUMMARY | 2025-06-29 14:32 | XMS_ITS | Encounter Summary ---
Author Organization [facility] Address [address] [place] [address] Phone Care Team Providers Care Clay Artist Name Role Phone Acosta Bedoya MD Primary Care Provider [phone] Encounter Details Date Type Department Care Team (Latest Contact Info) Description 07/29/2024 Transcribe Orders [facility] [address] [place] [id number] Christa Nobles NP [address] [place] [address] [email or web address] Dyspepsia (Primary Dx); Fatigue, unspecified type Social History Tobacco Use Types Packs/Day Years Used Date Smoking Tobacco: Never Smokeless Tobacco: Never Alcohol Use Standard Drinks/Week Comments Yes 0 (1 standard drink = 0.6 oz pur e alcohol) rarely Education Answer Date Recorded Are you interested in more education? Not on shira e 05/02/2023 Are you concerned about learning? Not on file 05/02/2023 No 05/02/2023 No 05/02/2023 Digital Access Answer Date Recorded No 05/02/2023 No 05/02/2023 Reliable internet access at home? Not on file 05/02/2023 Device with a working camera? Not on file Intimate Partner Violence Answer Date R ecorded Are you denied basic needs s uch as food, clothing, or medical care? No 07/05/2023 In the past 12 months have y ou been in a relationship with a person who hurts, threatens, or tries to control you? No 07/05/2023 Are you denied basic needs s uch as food, clothing, or medical care? No 07/05/2023 In the past 12 months have y ou been in a relationship with a person who hurts, threatens, or tries to control you? No 07/05/2023 Sex and Gender Information Value Date Recorded Sex Assigned at Not on file Legal Sex Male 3:06 PM EDT Gender Identity Not on file Sexual Orientation Not on file documented as of this encounter Plan of Treatment Not on file documented as of this encounter Results * 25-OH vitamin D (07/29/2024 1:35 PM EDT) 25 OH VIT D (TOTAL) 33 30 - 60 ng/mL [facility] Blood 07/29/2024 1:35 PM EDT 07/29/2024 1:40 PM EDT Christa Nobles NP LAB BLOOD ORDERABLES Final Result Performing Organization Address [facility] de Phone Number [address] [address] * (ABNORMAL) Zinc (07/29/2024 1:35 PM EDT) Zinc, S 55(L) 60 - 106 mcg/dL [facility] Comment: (NOTE) ADDITIONAL INFORMATION This test was developed and its performance characteristics determined by [facility] in a manner consistent with CLIA requirements. This test has not been cleared or approved by the U.S. Food and Drug Administration. Blood 07/29/2024 1:35 PM EDT 07/29/2024 1:40 PM EDT Christa Nobles NP LAB BLOOD ORDERABLES Final Result Performing Organization Address [facility]/ZIP Co de Phone Number [facility] [address] [place] [address] * Vitamin B12 (07/29/2024 1:35 PM EDT) VITAMIN B12 864 232 - 1,245 pg/mL [facility] Blood 07/29/2024 1:35 PM EDT 07/29/2024 1:40 PM EDT Christa Nobles INDUCTION FURNACE OPERATOR LAB BLOOD ORDERABLES Final Result Performing Organization Address City/[facility]/ZIP Co de Phone Number [address] [address] * Magnesium (07/29/2024 1:35 PM EDT) Pathologist [facility] MAGNESIUM 2.3 1.6 - 2.6 mg/dL [facility] Blood 07/29/2024 1:35 PM EDT 07/29/2024 1:40 PM EDT Christa Nobles INDUCTION FURNACE OPERATOR LAB BLOOD ORDERABLES Final Result Performing Organization Address [facility]/ZIP Co de Phone Number [address] [address] * Ferritin (07/29/2024 1:35 PM EDT) Pathologist [facility] FERRITIN 181 30 - 400 ug/L [facility] Blood 07/29/2024 1:35 PM EDT 07/29/2024 1:40 PM EDT Christa Nobles INDUCTION FURNACE OPERATOR LAB BLOOD ORDERABLES Final Result Performing Organization Address [facility]/ZIP Co de Phone Number [address] [address] * (ABNORMAL) Folate (07/29/2024 1:35 PM EDT) Pathologist [facility] FOLIC ACID >20.0(H) 4.2 - 19.9 ng/mL [facility] Blood 07/29/2024 1:35 PM EDT 07/29/2024 1:40 PM EDT Christa Nobles INDUCTION FURNACE OPERATOR LAB BLOOD ORDERABLES Final Result [address] [address] * Iron and iron binding capacity (07/29/2024 1:35 PM EDT) IRON 71 45 - 160 ug/dL [facility] IRON BINDING CAPACITY 231 228 - 428 ug/dL [facility] TRANSFERRIN SATURAT. 31 20 - 55 % [facility] Blood 07/29/2024 1:35 PM EDT 07/29/2024 1:40 PM EDT Christa Nobles INDUCTION FURNACE OPERATOR LAB BLOOD ORDERABLES Final Result Performing Organization Address [facility] Co de Phone Number [address] [address] * Comprehensive metabolic panel (07/29/2024 1:35 PM EDT) SODIUM 141 133 - 146 mmol/L [facility] POTASSIUM 4.3 3.3 - 5.1 mmol/L [facility] CHLORIDE 102 96 - 108 mmol/L [facility] CO2 28 21 - 35 mmol/L [facility] BUN 19 6 - 19 mg/dL [facility] CREATININE 0.90 0.5 - 1.5 mg/dL [facility] GLUCOSE 98 70 - 99 mg/dL [facility] ALBUMIN 4.0 3.9 - 4.8 g/dL [facility] TOTAL PROTEIN 6.9 6.5 - 8.0 g/dL [facility] CALCIUM 9.4 8.4 - 10.3 mg/dL [facility] ALKALINE PHOSPHATASE 105 39 - 117 U/L [facility] TOTAL BILIRUBIN 0.5 0.0 - 1.2 mg/dL [facility] AST 28 0 - 37 U/L [facility] ALT 24 0 - 40 U/L [facility] GLOBULIN 2.9 1 - 4.8 g/dL [facility] EGFR 82 >59 mL/min/1.7 3m2 [facility] Comment:Estimated glomerular filtration rate calculated using the CKD-EPI refit equation. ANION GAP 15 10 - 20 mmol/L [facility] Blood 07/29/2024 1:35 PM EDT 07/29/2024 1:40 PM EDT us Christadee Bo Giuliano INDUCTION FURNACE OPERATOR LAB BLOOD ORDERABLES Final Result [address] [id number] * (ABNORMAL) CBC and differential (07/29/2024 1:35 PM EDT) WBC 6.97 4.00 - 11.00 K/uL [facility] RBC 4.53 4.50 - 5.90 M/uL [facility] HGB 14.1 13.5 - 17.5 g/dL [facility] HCT 43.0 41.0 - 53.0 % [facility] PLT 251 150 - 450 K/uL [facility] MCV 94.9 80.0 - 100.0 fL [facility] MCH 31.1(H) 27.0 - 31.0 pg [facility] MCHC 32.8 32.0 - 36.0 g/dL [facility] RDW 13.8 11.5 - 14.5 % [facility] MPV 10.9 8.4 - 12.0 fl [facility] NRBC 0.00 0.00 /100 WBCs [facility] ABSOLUTE NRBC 0.00 0.00 K/uL [facility] DIFF METHOD Auto [facility] NEUTS 69.4 48.0 - 76.0 % [facility] LYMPHS 17.8(L) 18.0 - 41.0 % [facility] MONOS 10.2 4.0 - 11.0 % [facility] EOS 1.6 0.0 - 5.0 % [facility] BASOS 0.7 0.0 - 1.5 % [facility] Granulocytes, immature (%) 0.3 0.0 - 0.9 % [facility] ABSOLUTE NEUTS 4.84 1.92 - 7.60 K/uL [facility] ABSOLUTE LYMPHS 1.24 0.72 - 4.10 K/uL [facility] ABSOLUTE MONOS 0.71 0.16 - 1.10 K/uL [facility] ABSOLUTE EOS 0.11 0.00 - 0.50 K/uL [facility] ABSOLUTE BASOS 0.05 0.00 - 0.15 K/uL [facility] Granulocytes, immature 0.02 0.00 - 0.09 K/uL [facility] Blood 07/29/2024 1:35 PM EDT 07/29/2024 1:40 PM EDT us Christa Nobles INDUCTION FURNACE OPERATOR LAB BLOOD ORDERABLES Final Result Performing Organization Address City/State/[facility] Co de Phone Number [address] [address] documented in this encounter Visit Diagnoses Diagnosis Dyspepsia- Primary Dyspepsia and other specified disorders of function of stomach Fatigue, unspecified type documented in this encounter Care Teams Clay Artist Relationship Specialty Start Date End Date Acosta Bedoya MD [address] [place] [phone] PCP - General Internal Medicine 05/02/23 documented as of this encounter Additional Source Comments The information contained in this document represents components of the legal health record. It is not the complete legal health record.[facility]
--- OUTSIDE RECORDS SUMMARY | 2025-06-29 14:32 | XMS_ITS | Encounter Summary ---
Author Organization [facility] Address [address] [place] [id number] Phone Care Team Providers Care Clay Grinder Name Role Phone Acosta Bedoya MD Primary Care Provider [phone] Encounter Details Date Type Department Care Team (Latest Contact Info) Description 05/02/2023 Transcribe Orders [facility] [address] [address] [place]ina [place] PA [address] [place] [address] Fecal urgency (Primary Dx) Social History Tobacco Use Types Packs/Day Years Used Date Smoking Tobacco: Never Assessed Education Answer Date Recorded Are you interested in more education? Not on shira e 05/02/2023 Are you concerned about learning? Not on file 05/02/2023 No 05/02/2023 No 05/02/2023 Digital Access Answer Date Recorded No 05/02/2023 No 05/02/2023 Reliable internet access at home? Not on file 05/02/2023 Device with a working camera? Not on file Sex and Gender Information Value Date Recorded Sex Assigned at Not on file Legal Sex Male 3:06 PM EDT Gender Identity Not on file Sexual Orientation Not on file documented as of this encounter Plan of Treatment Not on file documented as of this encounter Results * Giardia antigen screen (05/07/2023 9:00 AM EDT) [facility] GIARDIA ANTIGEN Negative Negative [facility] DPT OF LAB MED AND PAT+ Comment: (NOTE) ADDITIONAL INFORMATION Test Performed by Enzyme Immunoassay. Stool (Stool) 05/07/2023 9:0 0 AM EDT 05/07/2023 10:12 AM EDT us Brina [facility] MICROBIOLOGY - GENERAL ORDDamien ZELAYA Final Result [facility] DPT OF LAB MED AND PAT+ [address] [place] [address] * (ABNORMAL) Calprotectin, stool (05/07/2023 9:00 AM EDT) STOOL CALPROTECTIN 254(H) mcg/g [facility] [place] Comment: (NOTE) Reference Range: <50 Normal 50-120 Borderline >120 Elevated Calprotectin in Crohn's disease and ulcerative colitis can be five to several thousand times above the reference population (50 mcg/g or less). Levels are usually 50 mcg/g or less in healthy patients and with irritable bowel syndrome. Repeat testing in 4-6 weeks is suggested for borderline values. Stool (Stool) 05/07/2023 9:0 0 AM EDT 05/07/2023 10:12 AM EDT us Brina [facility] BODY FLUIDS AND STOOLS RAKESH ZELAYA Final Result Performing Organization Address City/[facility]/ZIP Co de Phone Number [facility] [address] [place] [address], [facility] [phone] * Stool culture (05/07/2023 9:00 AM EDT) Special Requests None 05/07/2023 10:10 AM EDT [facility] Stool Culture NO SALMONELLA, SHIGELLA OR CAMPYLOBACTER ISOLATED 05/08/2023 9:47 AM EDT [facility] Stool (Stool) 05/07/2023 9:0 0 AM EDT 05/07/2023 10:12 AM EDT Brina [facility] MICROBIOLOGY - GENERAL ORDDamien ZELAYA Final Result Performing Organization Address [facility] Co de Phone Number [address] [address] * Pancreatic Elastase, Stool (05/07/2023 9:00 AM EDT) Pancreatic Elastase, Feces 210 >200 (Normal) mcg/g [facility] Stool (Stool) 05/07/2023 9:0 0 AM EDT 05/07/2023 10:12 AM EDT Brina [facility] BODY FLUIDS AND STOOLS ORDDamien HILLIARDCODY Final Result Performing Organization Address [facility] de Phone Number [facility] [address] [place] [address] * Fecal immunochemical test x1 (FIT) (05/04/2023 8:00 AM EDT) Immuno Fecal Occult Negative Negative [facility] Stool (Stool) 05/04/2023 8:0 0 AM EDT 05/04/2023 11:06 AM EDT Brina [facility] B[facility] FLUIDS AND STOOLS ORDDamien HILLIARDCODY Final Result Performing Organization Address [facility] de Phone Number [address] [address] * Ova and parasites, stool (05/04/2023 8:00 AM EDT) Parasitic exam FINAL 3 1704 [facility] DPT OF LAB MED AND PAT+ Comment: (NOTE) SOURCE: STOOL, STLP OVA AND PARASITE, MICROSCOPY, F FINAL No parasites seen. Cryptosporidium, Cyclospora, and microsporidia are not readily detected by this method. Single negative specimen does not rule out parasitic infection. Stool (Stool) 05/04/2023 8:0 0 AM EDT 05/04/2023 11:06 AM EDT us Brina [facility] MICROBIOLOGY - GENERAL ORDE RABLES Final Result [facility] DPT OF LAB MED AND PAT+ [address] [place] [address] * Ova and parasites, stool (05/03/2023 8:00 AM EDT) Parasitic exam FINAL 3 1832 [facility] DPT OF LAB MED AND PAT+ Comment: (NOTE) SOURCE: STOOL, STLP OVA AND PARASITE, MICROSCOPY, F FINAL No parasites seen. Cryptosporidium, Cyclospora, and microsporidia are not readily detected by this method. Single negative specimen does not rule out parasitic infection. Stool (Stool) 05/03/2023 8:0 0 AM EDT 05/04/2023 11:06 AM EDT us Brina [facility] MICROBIOLOGY - GENERAL ORDE RABLES Final Result Performing Organization Address [facility] Co de Phone Number [facility] DPT OF LAB MED AND PAT+ [address] [place] [address] * Ova and parasites, stool (05/02/2023 8:00 AM EDT) Parasitic exam FINAL 3 0921 [facility] DPT OF LAB MED AND PAT+ Comment: (NOTE) SOURCE: STOOL, STLP OVA AND PARASITE, MICROSCOPY, F FINAL No parasites seen. Cryptosporidium, Cyclospora, and microsporidia are not readily detected by this method. Single negative specimen does not rule out parasitic infection. Stool (Stool) 05/02/2023 8:0 0 AM EDT 05/04/2023 11:06 AM EDT us Brnia [facility] MICROBIOLOGY - GENERAL ORDE RABLES Final Result Performing Organization Address City/[facility]/ZIP Co de Phone Number [facility] DPT OF LAB MED AND PAT+ [address] [place] [address] documented in this encounter Visit Diagnoses Diagnosis Fecal urgency- Primary documented in this encounter Care Teams Clay Grinder Relationship Specialty Start Date End Date Acosta Bedoya MD [address] [place] [id number] PCP - General Internal Medicine 05/02/23 documented as of this encounter Additional Source Comments The information contained in this document represents components of the legal health record. It is not the complete legal health record.[facility]
--- OUTSIDE RECORDS SUMMARY | 2025-06-29 14:32 | XMS_ITS | Encounter Summary ---
Author Organization [facility] Address [address] [place] [phone] Phone Care Team Providers Care Electroplating Worker Name Role Phone Acosta Bedoya MD Primary Care Provider [phone] Encounter Details Date Type Department Care Team (Late st Contact Info) Description 07/05/2023 Procedure Pass [facility] Endoscopy Admitting Dept Virtual Department [address] [place] [address] Social History Tobacco Use Types Packs/Day Years [...] on file documented as of this encounter Visit Diagnoses Not on filedocumented in this encounter Care Teams Electroplating Worker Relationship Specialty Start Date End Date Acosta Bedoya MD [address] [place] [id number] PCP - General Internal Medicine 05/02/23 documented as of this encounter Additional Source Comments The information contained in this document represents components of the legal health record. It is not the complete legal health record.[facility]
--- OUTSIDE RECORDS SUMMARY | 2025-06-29 14:32 | XMS_ITS | Patient Health Record ---
Author Organization [facility] Address [address] [place] [address] Care Team Providers Care Quality Officer Name Role Phone MD JESSEE BARRIOS Primary Care Provider JESSEE BARRIOS Unavailable Unavailable TIARA WOOD Unavailable [phone] Migration, Provider Unavailable Unavailable Allergies No Known Allergies Results Component Value Reference Range Notes Urine Culture, Routine - [id number] Reviewed date:09/01/2024 08:29:09 AM Interpretation: Performing Lab:[facility], [facility] [facility], Phone - [phone], Director - Aubrey Notes/Report: Clinical Information:SRC: URINE Clinical Information:SRC: URINE Urine Culture, Routine Final report Result 1 Mixed urogenital karina 25,000-50,000 colony forming units per mL OVA AND PARASITES, STOOL CON C AND PERM SMEAR Reviewed date:10/03/2024 03:16:33 PM Interpretation: Performing Lab:[facility], [facility], [facility] [address] [place], [place], [phone] Dontae Knox MD Notes/Report: FASTING: UNKNOWN OVA AND PARASITES, CONC AND PERM SMEAR SEE NOTE OVA AND PARASITES, CONC AND PERM SMEAR Micro Number: [id number] Test Status: Final Specimen Source: Stool Specimen Quality: Adequate CONCENTRATION 1: No ova or parasites seen TRICHROME 1: No ova or parasites seen Routine Ova and Parasite exam may not detect some parasites that occasionally cause diarrheal illness. Cryptosporidium Antigen and/or Cyclospora and Isospora Exam may be ordered to detect these parasites. One negative sample does not necessarily rule out the presence of a parasitic infection. For additional information, please refer to https://education.questdi [employer]ics.com/faq/IMG165 (This link is being provided for informational/ educational purposes only.) CLOSTRIDIUM DIFFICILE TOXIN/ GDH W/REFL TO PCR Reviewed date:09/29/2024 08:02:57 AM Interpretation: Performing Lab:[facility] [facility], [facility] [place], [place], [phone] Dontae Knox MD Notes/Report: FASTING: YES CLOSTRIDIUM DIFFICILE TOXIN/GDH W/REFL TO PCR SEE NOTE CLOSTRIDIUM DIFFICILE TOXIN/GDH W/REFL TO PCR Micro Number: [id number] Test Status: Final Specimen Source: Stool Specimen Quality: Adequate GDH Antigen: Not Detected Toxin A and B: Not Detected COMMENT: No toxigenic C. difficile detected For additional information, please refer to http://education.[employer]/faq/KMU685 (This link is being provided for informational/educational purposes only.) SED RATE BY MODIFIED WESTERG LUI Reviewed date:09/29/2024 08:02:57 AM Interpretation: Performing Lab[facility] [address] [address] [place], [place], [address] Dontae Knox MD Notes/Report: FASTING: YES SED RATE BY MODIFIED WESTERGREN 2 < OR = 20 mm/h HEMOGLOBIN A1c Reviewed date:09/29/2024 07:58:46 AM Interpretation: Performing Lab:[facility] [address] [address] [place], [place], [phone] Dontae Knox MD Notes/Report: FASTING: YES HEMOGLOBIN A1c 6.1 <5.7 % of total Hgb For someone without known diabetes, a hemoglobin A1c value between 5.7% and 6.4% is consistent with prediabetes and should be confirmed with a follow-up test. For someone with known diabetes, a value <7% indicates that their diabetes is well controlled. A1c targets should be individualized based on duration of diabetes, age, comorbid conditions, and other considerations. This assay result is consistent with an increased risk of diabetes. Currently, no consensus exists regarding use of hemoglobin A1c for diagnosis of diabetes for children. TSH, 3RD GENERATION W/REFLEX TO FT4 Reviewed date:09/30/2024 08:20:54 AM Interpretation: Performing Lab[facility], [address] [place], [phone] Dontae Knox MD Notes/Report: FASTING: YES TSH W/REFLEX TO FT4 3.25 0.40-4.50 mIU/L CMP W/EGFR Reviewed date:09/30/2024 08:19:48 AM Interpretation: Performing Lab:[facility], [address] [place], [place], [phone] Dontae Knox MD Notes/Report: FASTING: YES GLUCOSE 168 65-99 mg/dL Fasting reference interval For someone without known diabetes, a glucose value >125 mg/dL indicates that they may have diabetes and this should be confirmed with a follow-up test. UREA NITROGEN (BUN) 24 7-25 mg/dL CREATININE 1.04 0.70-1.22 mg/dL EGFR 69 > OR = 60 mL/min/1.73m2 BUN/CREATININE RATIO SEE NOTE: 6-22 (calc) Not Reported: BUN and Creatinine are within reference range. SODIUM 140 135-146 mmol/L POTASSIUM 4.7 3.5-5.3 mmol/L CHLORIDE 103 98-110 mmol/L CARBON DIOXIDE 22 20-32 mmol/L CALCIUM 9.2 8.6-10.3 mg/dL PROTEIN, TOTAL 6.6 6.1-8.1 g/dL ALBUMIN 4.0 3.6-5.1 g/dL GLOBULIN 2.6 1.9-3.7 g/dL (calc) ALBUMIN/GLOBULIN RATIO 1.5 1.0-2.5 (calc) BILIRUBIN, TOTAL 0.6 0.2-1.2 mg/dL ALKALINE PHOSPHATASE 84 35-144 U/L AST 22 10-35 U/L ALT 22 9-46 U/L Reason For Referral Reason PLEASE EVALUATE AND TREAT. NEED SPECIALIST IN ANOSCOPY PLEASE. 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) Referral Organization [facility] Referring Provider First Name JESSEE Referring Provider Last Name DENIS Referring Provider Speciality General Pr actice Referred Provider YAKOV ESCOBEDO Referred Provider Specialty Gastroentero logy Referral Priority Routine Medications Medication SIG (Take, Route, Frequency, Duration) Notes Start Date End Date Status Carvedilol 6.25 MG 1 tablet orally 2 times a day Active LORazepam 0.5 MG 1 tab(s) orally every 12 hours; Duration: 30 days 12/21/2022 Not-Taking DULoxetine HCl 30 MG 1 cap(s) orally 2 times a day Not-Taking Losartan Potassium 25 MG 1 tab(s) orally once a day Active Ventolin HFA 108 (90 Base) MCG/ACT 2 puff(s) inhaled every 6 hours Active Omeprazole 20 MG 1 cap(s) orally once a day Active Aspir-Low 81 MG 1 TAB(S) ORALLY ONCE A DAY *Please review and pick correct strength-formula tion from FriendsClear options. If intended option is not shown, discontinue and re-order from Quick Search* Active Nitroglycerin 0.4 MG 1 tab(s) sublingually every 5 minutes; Duration: 30 days 12/21/2022 Not-Taking Eliquis 5 MG as directed orally 2 times a day Active diphenhydrAMINE HCl 50 MG 1 capsule orally twice a day with meals; Duration: 10 day(s) 08/30/2020 Not-Taking Famotidine 40 MG 1 tab(s) orally once a day (at bedtime) Active Montelukast Sodium 10 MG 1 tab(s) orally once a day; Duration: 30 day(s) 01/26/2023 Not-Taking Atorvastatin Calcium 80 MG 1 tab(s) orally once a day Active amLODIPine Besylate 5 MG 1 tab(s) orally once a day Active Social History Tobacco Use: Social History Observation Description Date Details (start date - stop date) Never Smoker NA - NA Smoking: Question Answer Notes Are you a: never smoked Problems Problem Type SNOMED Code ICD Code Onset Dates Problem Status W/U Status Risk Notes Problem Essential hypertension (59710134) Essential (primary) hypertension (I10) Active confirmed Problem Atherosclerotic heart disease of [place] coronary artery without angina pectoris (344334053026211) Atherosclerotic heart disease of [place] coronary artery without angina pectoris (I25.10) Active confirmed Problem Atherosclerosis of aorta (61283488) Atherosclerosis of aorta (I70.0) Active confirmed as per CXR Problem Mixed hyperlipidemia (671047942) Mixed hyperlipidemia (E78.2) Active confirmed Problem Balanitis (26171555) Balanitis (N48.1) Active confirmed Problem Incontinence of feces (61476507) 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) Active confirmed Problem Fatigue (18518925) Other fatigue (R53.83) Active confirmed Problem Hypertrophic cardiomyopathy (870815614) Hypertrophic cardiomyopathy (I42.2) Active confirmed as per ECHO Problem 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) 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 Problem Anxiety (01284013) Anxiety (F41.9) Active confi rmed Problem Stented coronary artery (336814547) Stented coronary artery (Z95.5) Active confirmed Problem Seasonal allergy (873544504) Seasonal allergies (J30.2) Active confirmed Problem Hypercoagulable state (12536595) 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) Active confirmed Problem History of multiple allergies (909783787) Multiple allergies (Z88.9) Active confirmed Problem Diastolic dysfunction (8562605) Diastolic dysfunction (I51.89) Active confirmed Problem Heart failure (22584516) CHF (NYHA class II, 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) Active confirmed as per ECHO Problem Left bundle branch block (89974678) LBBB (left bundle branch block) (I44.7) Active confirmed Problem Chronic diarrhea (567294896) Chronic diarrhea (K52.9) Active confirmed Problem Subclinical hypothyroidism (85197779) 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) Active confirmed Vital Signs Heart Rate 73 /min 12/03/2024 Temperature 97.5 degrees Fahrenheit 12/03/2024 Blood pressure diastolic 80 mm Hg 12/03/2024 Oximetry 96 12/03/2024 Height 67 in 12/03/2024 Blood pressure systolic 130 mm Hg 12/03/2024 Weight 134 lbs 12/03/2024 BMI 20.99 kg/m2 12/03/2024 Encounters Encounter Location Date Provider Diagnosis [address] [address] 09/06/2024 Provider Migration Yari N48.[address] [address] 08/22/2024 BRENDALIS BARRIOS BMI 20.0-20.9, adult Z68.20 and Bilateral impacted cerumen H61.[address] [address] 08/29/2024 BRENDALIS BARRIOS Hematuria, unspecifi ed type R31.[address] [address] 09/04/2024 TIARA WOOD BMI 21.0-21.9, adult Z68.21 ; Essential (primary) hypertension I10 and Atherosclerosis of aorta I70.[address] [address] 09/05/2024 BRENDALIS BARRIOS BMI 21.0-21.9, adult Z68.21 ; Balanitis N48.1 and Left inguinal hernia K40.[address] [address] 09/24/2024 BRENDALIS BARRIOS BMI 21.0-21.9, adult Z68.21 ; Fecal urgency R15.2 and Full incontinence of feces R15.[address] [address] 10/03/2024 BRENDALIS BARRIOS Balanitis N48.1 ; An al sphincter incompetence K62.89 and BMI 21.0-21.9, adult Z68.[address] [place] [address] 12/03/2024 BRENDALIS BARRIOS Fatigue, unspecified type R53.83 ; Flu-like symptoms R68.89 ; BMI 20.0-20.9, adult Z68.20 and LBBB (left bundle branch block) I44.[address] [address] 06/02/2025 BRENDALIS BARRIOS Encounter for genera l adult medical examination with abnormal findings Z00.01 and Balanitis N48.[address] [address] 08/25/2024 BRENDALIS BARRIOS Essential (primary) hypertension I10 [address] [address] 10/02/2024 BRENDALIS BARRIOS [address] [address] 10/10/2024 BRENDALIS BARRIOS [address] [address] 05/22/2025 JESSEE BARRIOS Joshtis N48.1 Assessments Encounter Date Diagnosis (ICD Code) Assessment Notes Treatment Notes Treatment Clinical Notes Section Notes 09/04/2024 BMI 21.0-21.9, adult (ICD-10 - Z68.21) will continue follow up with routine visits 08/22/2024 BMI 20.0-20.9, adult (ICD-10 - Z68.20) 08/22/2024 Bilateral impacted cerumen (ICD-10 - H61.23) BL ears irrigated with warm water and H2O2. Loosened wax removed with curette under direct visualization. Pt tolerated procedure well. Successful disimpaction. TM''s intact. 09/06/2024 Balanitis (ICD-10 - N48.1) 09/04/2024 Essential (primary) hypertension (ICD-10 - I10) Education provided. Low sodium diet. Take your blood pressure medicine exactly as prescribed. Call your medical provider or seek immediate care if: Your blood pressure is much higher than normal (such as 180/120 or higher), but you don't have symptoms. Monitor blood pressure daily and as needed. Call 911 anytime you think you may need emergency care. For example, call if: Chest pain. You passed out. You have signs of a stroke. Sudden severe headache. 09/05/2024 Balanitis (ICD-10 - N48.1) Advised to take medications as prescribed. Call to office if you don't improve or get worse, go the the nearest ER in eventual emergency Advised to call the office if not better or worse in 48-72 hours 09/05/2024 BMI 21.0-21.9, adult (ICD-10 - Z68.21) 08/29/2024 Hematuria, unspecified type (ICD-10 - R31.9) 08/25/2024 Essential (primary) hypertension (ICD-10 - I10) 05/22/2025 Balanitis (ICD-10 - N48.1) 09/24/2024 Fecal urgency (ICD-10 - R15.2) Will obtain labs and followup in the office. 09/24/2024 BMI 21.0-21.9, adult (ICD-10 - Z68.21) 10/03/2024 Balanitis (ICD-10 - N48.1) Advised to take medications as prescribed. Call to office if you don't improve or get worse, go the the nearest ER in eventual emergency Advised to call the office if not better or worse in 48-72 hours 10/03/2024 Anal sphincter incompetence (ICD-10 - K62.89) Referral script is given to patient. Patient to call insurance and set it up, if any difficulties, let me know. Call us 1-2 weeks prior to the appointment to authorise the visit. 12/03/2024 Fatigue, unspecified type (ICD-10 - R53.83) EKG report: sinus rhythm LBBB. EKG compare with previous one similar findings b 06/02/2025 Encounter for general adult medical examination with abnormal findings (ICD-10 - Z00.01) Advised to take medications as prescribed. Call to office if you don't improve or get worse, go the the nearest ER in eventual emergency 12/03/2024 Flu-like symptoms (ICD-10 - R68.89) fluids, rest, supportive measures for fever/symptom relief Return to office for recurrence of pain, fever Rapid covid and flu test negative b 06/02/2025 Balanitis (ICD-10 - N48.1) Advised to take medications as prescribed. Call to office if you don't improve or get worse, go the the nearest ER in eventual emergency Advised to take medications as prescribed. Call to office if you don't improve or get worse, go the the nearest ER in eventual emergency 12/03/2024 BMI 20.0-20.9, adult (ICD-10 - Z68.20) b 10/03/2024 BMI 21.0-21.9, adult (ICD-10 - Z68.21) 09/24/2024 Full incontinence of feces (ICD-10 - R15.9) Will obtain labs and followup in the office. 09/05/2024 Left inguinal hernia (ICD-10 - K40.90) Declines work-up at this time 09/04/2024 Atherosclerosis of aorta (ICD-10 - I70.0) as per CXR Lifestyle changes, such as eating a healthy diet and exercise as tolerated is recommended. Continue with Blood pressure medicine and aspirin/statin as prescribed. 12/03/2024 LBBB (left bundle branch block) (ICD-10 - I44.7) EKG report: sinus rhythm LBBB. EKG compare with previous one similar findings b 06/02/2025 Other This was a TeleMedicine audio and video encounter performed over the name [employer] which is HIPPA compliant secure platform. The encounter was performed between the patient was at home and the medical provider in the office. Verbal consent for this Telehealth encounter was voluntarily provided by the patient understanding the risks and alternatives and the responsibility for applicable cost sharing. Time spent during this encounter and with the patient: 12 minutes Plan Of Treatment Pending Test Test Name Order Date [facility] EKG 09/06/2020 PSA 08/31/2023 Comp. Metabolic Panel (14) 08/31/2023 Hemoglobin A1c 08/31/2023 LIPID PANEL 08/31/2023 CBC (INCLUDES DIFF/PLT) 08/31/2023 EKG 12/03/2024 EKG 09/06/2020 TSH with reflex to Free T4 08/31/2023 CHEST X-RAY 08/30/2020 PSA 09/20/2020 LIPID PANEL 09/20/2020 CBC (INCLUDES DIFF/PLT) 09/20/2020 TSH with reflex to Free T4 09/20/2020 Urinalysis w/ reflex to culture 09/20/20 20 CMP 09/20/2020 FOBT 08/31/2023 Urine Culture and Sensitivity 08/31/2023 URINALYSIS, COMPLETE 08/31/2023 Comp. Metabolic Panel (14) 01/29/2023 Microalb/Creat Ratio, Randm Ur Hemoglobin A1c 01/29/2023 LIPID PANEL 01/29/2023 CBC (INCLUDES DIFF/PLT) 01/29/2023 PSA 01/29/2023 Urine Culture and Sensitivity 08/29/2024 Sed Rate 09/24/2024 Comp. Metabolic Panel (14) 09/24/2024 Hemoglobin A1c 09/24/2024 C difficile Toxins A+B, EIA 09/24/2024 TSH with reflex to Free T4 09/24/2024 Future Test Test Name Order Date STOOL OVA AND PARACITES 09/24/2024 Insurance Providers Payer Name Payer Address Payer Phone Subscriber Number Group Number Insured Name Patient Relationship to Insured Coverage Start Date Coverage End Date [address] [phone] [id number] ANUJ CRAWLEY Self - patient is the insured 1 [facility] MEDICARE SUPPLEMENT [address] [place] [address] [id number] ANUJ CRAWLEY Self - patient is the insured 1 Medical (General) History Medical History History ICD Code CAD with stents 0.6 cm left lung nodule.Stable for years CHF PROSTATE CANCER HX RADIATION THERAPY FOR PROSTATE CANCER URINARY INCONTINENCE PRE DIABETES wear hearing aid HX OF LUNG CLOT Surgical History Surgery Date(Month/Year) brachitherapy 1998 colonoscopy 2018 Hospitalization History Reason Date(Month/Year)
--- OUTSIDE RECORDS SUMMARY | 2025-06-29 14:32 | XMS_ITS | Patient Health Record ---
Author Organization [facility] Address [address] [place] [address] Support Name Relationship Address Phone AlessiaWood calderonsanchez Guarantor Unknown [phone] Reason For Referral No Information Plan Of Treatment No Information Insurance Providers Payer Name Payer Address Payer Phone Subscriber Number Group Number Insured Name Patient Relationship to Insured Coverage Start Date Coverage End Date MEDICARE [address] [place] [phone] [id number] AlessiaWood calderonsanchez Self - patient is the insured 1 [facility] [address] [place] [id number] Alessia Woodsanchez Self - patient is the insured 1
--- OUTSIDE RECORDS SUMMARY | 2025-06-29 14:33 | XMS_ITS | Patient Health Record ---
Author Organization [facility] Address [address] [place] [phone] Care Team Providers Care Domestic Laundry Worker Name Role Phone Lopez Morales Primary Care Provider Mitul PHOEN[place], Jono Unavailable Reason For Referral No Information Encounters Encounter Location Date Provider Diagnosis [facility] [address] [place], [place] [phone] 10/31/2024 Jono Bauman Plan Of Treatment No Information Insurance Providers Payer Name Payer Address Payer Phone Subscriber Number Group Number Insured Name Patient Relationship to Insured Coverage Start Date Coverage End Date MEDICARE [address] [place] [phone] [id number] Tisha Aggarwal Self - patient is the insured
--- OUTSIDE RECORDS SUMMARY | 2025-06-29 14:33 | XMS_ITS | Patient Health Record ---
Author Organization [facility] Address [address] [place] [address] Care Team Providers Care Paper Novelty Maker Name Role Phone ERIC PANIAGUA Unavailable [phone] Allergies Allergen (clinical drug ingredient) Drug/Non Drug Allergy documented on EMR Reaction Allergy Type Onset Date Status rifampin Rifampin Unknown Drug Allergy Active Reason For Referral No Information Medications Medication SIG (Take, Route, Frequency, Duration) Notes Start Date End Date Status Montelukast Sodium 10 MG 1 tablet Orally Once a day; Duration: 30 day(s) Active [place] Ear Drops 10-10-1 MG/ML 4 drops into affected ear Otic Three times a day Active Banophen 25 MG 1 capsule at bedtime as needed Orally Once a day; Duration: 30 day(s) Active Ipratropium [place] 0.06 % 2 sprays in e ach nostril Nasally Three times a day Active Atorvastatin Calcium 40 MG 1 tablet Oral ly Once a day; Duration: 30 day(s) Active Omeprazole 20 MG 1 capsule 30 minutes before morning meal Orally Once a day; Duration: 30 day(s) Active amLODIPine Besylate 5 MG 1 tablet Orally Once a day; Duration: 30 day(s) Active Social History Tobacco Use: Social History Observation Description Date Details (start date - stop date) Never Smoker NA - NA Tobacco Use: Question Answer Notes Are you a: never smoker Additional Findings: Tobacco Non-User Aggressive non-smoker Alcohol Screening: Question Answer Notes Did you have a drink contain ing alcohol in the past year? Yes How often did you have a dri nk containing alcohol in the past year? Four or more times a week (4 points) How many drinks did you have on a typical day when you were drinking in the past year? 1 or 2 (0 points) How often did you have six o r more drinks on one occasion in the past year? Never (0 points) Points 4 Interpretation Positive Alcohol Question Answer Notes MODERATION OF ETOH CONSUMPTI ON RECOMMENDATION: Counseling about alcohol consumption Smoking Question Answer Notes Are you a: never smoker Problems Problem Type SNOMED Code ICD Code Onset Dates Problem Status W/U Status Risk Notes Problem Candidal otitis externa (46473400) Candidal otitis externa (B37.84) Active confirmed Problem Otitis externa of left ear (3424150831709695) Other otitis externa, left ear (H60.8X2) Active confirmed Problem Impacted cerumen (80976294) Impacted cerumen, right ear (H61.21) Active confirmed Problem Impacted cerumen (85652490) Impacted cerumen, bilateral (H61.23) Active confirmed Problem Acute serous otitis media of left ear (1321682852790657) Acute serous otitis media, left ear (H65.02) Active confirmed Problem Otalgia of left ear (finding) (1998660381) Otalgia, left ear (H92.02) Active confirmed Problem Allergic rhinitis caused by pollen (disorder) (77817149) Allergic rhinitis due to pollen (J30.1) Active confirmed Problem Postnasal drip (37872153) Postnasal drip (R09.82) Active confirmed Problem Mixed conductive and sensorineural hearing loss, unilateral, 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) Active confirmed Problem Left temporomandibular joint disorder (48373193647204090) Left temporomandibular joint disorder, unspecified (M26.602) Active confirmed Plan Of Treatment No Information Insurance Providers Payer Name Payer Address Payer Phone Subscriber Number Group Number Insured Name Patient Relationship to Insured Coverage Start Date Coverage End Date MEDICARE [place] PART B [address] [place] [address] [id number] ANUJ CRAWLEY Self - patient is the insured [facility] [address] [place] [address] [id number] ANUJ CRAWLEY Self - patient is the insured Medical (General) History Medical History History ICD Code Arthritis heart attack high blood pressure asthma heart disease Surgical History Surgery Date(Month/Year) prostate surgery cervical surgery
--- OUTSIDE RECORDS SUMMARY | 2025-06-29 14:34 | XMS_ITS | Clinical Summary ---
Author Organization [facility] Address [address] [place] [id number] Phone Care Team Providers Care Credit And Collection Manager Name Role Phone Acosta Bedoya MD Primary Care Provider [phone] Allergies Active Allergy Reactions Criticality Noted Date Comments Tamsulosin Unknown 07/04/2023 Medications atorvastatin (LIPITOR) 80 MG tablet Take 80 mg by mouth daily. Active amLODIPine (NORVASC) 5 MG tablet Take 5 mg by mouth daily. Active losartan (COZAAR) 25 MG tablet Take 25 mg by mouth daily. Active aspirin 81 mg chewable tablet Take 81 mg by mouth daily. Active carvedilol (COREG) 6.25 MG tablet Take 6.25 mg by mouth 2 (two) times a day with meals. Active vitamin E 1000 UNIT capsule Take 1,000 Units by mouth daily. Active cholecalciferol (VITAMIN D3) 2,000 unit capsule Take 2,000 Units by mouth daily. Active ascorbic acid, vitamin C, (VITAMIN C) 100 MG tablet Take 100 mg by mouth daily. Active b complex vitamins capsule Take 1 capsule by mouth daily. Active Social History Tobacco Use Types Packs/Day Years Used Date Smoking Tobacco: Never Smokeless Tobacco: Never Tobacco Cessation:Counseling Given: Not Answered Alcohol Use Standard Drinks/Week Comments Yes 0 [...] on file Sexual Orientation Not on file Last Filed Vital Signs Vital Sign Reading Time Taken Comments Blood Pressure 147/83 07/05/2023 1:02 PM EDT Pulse 73 07/05/2023 12:45 PM EDT Temperature 36.6 C (97.9 F) 07/05/2023 12:30 PM EDT Respiratory Rate 16 07/05/2023 12:45 PM EDT Oxygen Saturation 99% 07/05/2023 1:02 PM EDT Inhaled Oxygen Concentration - - Weight 63.5 kg (140 lb) 07/04/2023 10:42 AM EDT Height 167.6 cm (5' 6 ) 07/04/2023 10:42 AM EDT Body Mass Index 22.6 07/04/2023 10:42 AM EDT Plan of Treatment Health Maintenance Due Date Last Done Comments DEPRESSION SCREENING 1947 RSV VACCINE (1 - 1-dose 75+ series) 01/30/2011 INFLUENZA VACCINE (#1) 2025 , 06/29/2022, 07/28/2021, Additional history exists COVID-19 VACCINE ( - season) 2025 11/30/2020, 11/02/2020 CREATININE LEVEL 07/29/2025 07/29/2024 POTASSIUM LEVEL 07/29/2025 07/29/2024 Adult Td,Tdap Booster 03/16/2033 03/16/2023 ZOSTER VACCINES Completed 05/20/2018, 02/13/2018 PNEUMOCOCCAL VACCINES (50+ years) Completed 03/16/2023 HEPATITIS A VACCINES Aged Out No long er eligible based on patient's age to complete this topic HIB VACCINES Aged Out No longer eligi ble based on patient's age to complete this topic MENINGOCOCCAL VACCINES (ACWY) Aged Out No longer eligible based on patient's age to complete this topic MENINGOCOCCAL VACCINES (B) Aged Out N o longer eligible based on patient's age to complete this topic Medical Devices Not on file Procedures Procedure Name Priority Date/Time Associated Diagnosis Comments COMPREHENSIVE METABOLIC PANEL Routine 07/29/2024 1:35 PM EDT Dyspepsia Fatigue, unspecified type from Last 3 Months or Most Recently Relevant to Health Maintenance Results * Comprehensive metabolic panel (07/29/2024 1:35 PM EDT) SODIUM 141 133 - 146 mmol/L [facility] POTASSIUM 4.3 3.3 - 5.1 mmol/L [facility] CHLORIDE 102 96 - 108 mmol/L [facility] CO2 28 21 - 35 mmol/L [facility] BUN 19 6 - 19 mg/dL [facility] CREATININE 0.90 0.5 - 1.5 mg/dL [facility] GLUCOSE 98 70 - 99 mg/dL [facility] ALBUMIN 4.0 3.9 - 4.8 g/dL [facility] TOTAL PROTEIN 6.9 6.5 - 8.0 g/dL [facility] CALCIUM 9.4 8.4 - 10.3 mg/dL [facility] ALKALINE PHOSPHATASE 105 39 - 117 U/L [facility] TOTAL BILIRUBIN 0.5 0.0 - 1.2 mg/dL [facility] AST 28 0 - 37 U/L [facility] ALT 24 0 - 40 U/L [facility] GLOBULIN 2.9 1 - 4.8 g/dL [facility] EGFR 82 >59 mL/min/1.7 3m2 [facility] Comment:Estimated glomerular filtration rate calculated using the CKD-EPI refit equation. ANION GAP 15 10 - 20 mmol/L [facility] Blood 07/29/2024 1:35 PM EDT 07/29/2024 1:40 PM EDT us Christa Nobles NP LAB BLOOD ORDERABLES Final Result [facility] [address] [place] [address] from Last 3 Months or Most Recently Relevant to Health Maintenance Insurance MEDICARE PART A & B [facility] MEDICARE SUPPLEMENT MEDICARE PART A & B Member Subscriber Plan / Payer (Ef fective 2001-Present) Name:Tisha Aggarwal Member ID:[id number] Relation to Subscriber:Self Name:Tisha Aggarwal Subscriber ID:[id number] Payer ID:[id number] Group ID:Not on file Type:Medicare Address: [employer] [address] MEDICARE SUPPLEMENT MEDICARE PART A & B MEDICARE SUPPLEMENT MEDICARE PART A & B MEDICARE SUPPLEMENT MEDICARE PART A & B [facility] MEDICARE SUPPLEMENT MEDICARE PART A & B [facility] MEDICARE SUPPLEMENT Care Teams Credit And Collection Manager Relationship Specialty Start Date End Date Acosta Bedoya MD [address] [place] [id number] PCP - General Internal Medicine 05/02/23 Additional Source Comments The information contained in this document represents components of the legal health record. It is not the complete legal health record.[facility]
== END 2025-06-29 13:19 | disposition home or self-care (01) ==
PROVIDERS: Visit Provider Nurse Practitioner Family
DX: K59.00 Constipation, unspecified (principal)

== ENCOUNTER → 2025-06-29 12:05 | Outpatient (BNVA) | payer MEDICARE, SELFPAY | PROVIDERS: Visit Provider Nurse Practitioner Family | DX: K59.00 Constipation, unspecified (principal) | CPT/HCPCS: 99212 ==